=== PATIENT | female | born 1980 | race African-American/Black ===

== ENCOUNTER → 2020-03-26 | Outpatient (CLI) | payer OTHER ==
[~2020-03-26] MED LIST: GASTROGRAFIN SOLUTION 30ML (Q9963) As Ordered ONE; ISOVUE-370 76% 100ML VIAL As Ordered ONE
--- NOTE | 2020-03-26 12:42 | REP ---
REASON FOR EXAM: Abdominal pain. No priors for comparison. CONTRAST: 100 mL Isovue 370. The lung bases are clear. The liver, spleen, pancreas, adrenal glands, and kidneys are within normal limits. The abdominal aorta and para-aortic regions are within normal limits. The patient is status post cholecystectomy. The intra-abdominal and intrapelvic bowel loops and their mesenteries are within normal limits. There is no free fluid or free air in the abdomen. There is a trace amount of free fluid in the pelvis. There is no free pelvic air. There is no evidence of intra-abdominal or intrapelvic mass or adenopathy. Bone window technique throughout the examination shows the osseous structures to be within normal limits. IMPRESSION: Small amount of free fluid in the pelvis, likely physiologic. There is no evidence of acute intra-abdominal or intrapelvic disease. Electronically Signed by Rex Paul DO 03/26/2020 04:56 P
== END ==
LOC: M RAD 07:19
PROVIDERS: ATTEND Family Medicine
DX: R10.84 Generalized abdominal pain (principal)
CPT/HCPCS: 74177; Q9963; Q9967

== ENCOUNTER 2020-04-29 11:52 | Day surgery (SDC) | payer OTHER ==
[2020-04-29] MEDS ORDERED: propofoL 500 MG/50 ML VIAL As Ordered ONE (13:12)
[2020-04-29] MEDS ORDERED: fentaNYL 100 MCG/2 ML INJECTION (J3010) As Ordered ONE (13:13)
[2020-04-29] MEDS ORDERED: LIDOCAINE 2% 100MG/5ML SDV (FOR ANES.) As Ordered ONE (13:29)
[2020-04-29] MEDS ORDERED: ONDANSETRON 4MG/2ML VIAL As Ordered ONE (13:42)
--- NOTE | 2020-05-27 11:28 | ROOR ---
Patient Name: Shakeel Vick Procedure Date: 04/29/2020 9:44 AM Date of : 1980 Age: 40 Room: [facility] Gender: Female Note Status: El Teacher Override Procedure: Total Colonoscopy to Cecum Indications: Lower abdominal pain Providers: Gurdeep Read MD Referring MD: MELLISA PAK MD Requesting Provider: Medicines: Monitored Anesthesia Care Complications: No immediate complications. Procedure: Pre-Anesthesia Assessment: - The heart rate, respiratory rate, oxygen saturations, blood pressure, adequacy of pulmonary ventilation, and response to care were monitored throughout the procedure. The Colonoscope was introduced through the anus and advanced to the cecum, identified by appendiceal orifice and ileocecal valve. The colonoscopy was performed without difficulty. The patient tolerated the procedure well. The quality of the bowel preparation was excellent. Findings: The perianal and digital rectal examinations were normal. No other significant abnormalities were identified in a careful examination of the remainder of the colon. The exam was otherwise without abnormality on direct and retroflexion views. Impression: - The examination was otherwise normal on direct and retroflexion views. - No specimens collected. - The exam was otherwise normal to the cecum. Recommendation: - Patient has a contact number available for emergencies. The signs and symptoms of potential delayed complications were discussed with the patient. Return to normal activities tomorrow. Written discharge instructions were provided to the patient. - High fiber diet. - Discharge patient to home. - Continue present medications. - Repeat colonoscopy at age 52 for screening purposes. - Return to referring physician. - The findings and recommendations were discussed with the patient. Gurdeep Read MD Gurdeep Read MD 04/29/2020 1:42:57 PM Electronically signed by Gurdeep Read MD Number of Addenda: 0 Note Initiated On: 04/29/2020 9:44 AM Estimated Blood Loss: Estimated blood loss: none.
--- NOTE | 2020-05-27 11:28 | ROOR ---
Patient Name: Shakeel Vick Procedure Date: 04/29/2020 9:45 AM Date of : 1980 Age: 40 Room: [facility] Gender: Female Note Status: Finalized Procedure: Upper Endoscopy + Biopsies Indications: Epigastric abdominal pain, Nausea with vomiting Providers: Gurdeep Read MD Referring MD: MELLISA PAK MD Requesting Provider: Medicines: Monitored Anesthesia Care Complications: No immediate complications. Procedure: Pre-Anesthesia Assessment: - The heart rate, respiratory rate, oxygen saturations, blood pressure, adequacy of pulmonary ventilation, and response to care were monitored throughout the procedure. The Endoscope was introduced through the mouth, and advanced to the second part of duodenum. The upper GI endoscopy was accomplished without difficulty. The patient tolerated the procedure well. Findings: The Z-line was variable and was found 40 cm from the incisors. Multiple biopsies were obtained with cold forceps for evaluation to rule out Subramanian's Esophagus randomly at the gastroesophageal junction. No other significant abnormalities were identified in a careful examination of the stomach. Biopsies were taken with a cold forceps in the gastric antrum for Helicobacter pylori testing. The exam of the duodenum was otherwise normal. Impression: - Z-line variable, 40 cm from the incisors. - Multiple biopsies were obtained at the gastroesophageal junction. - Biopsies were taken with a cold forceps for Helicobacter pylori testing. - The examination was otherwise normal. Recommendation: - Patient has a contact number available for emergencies. The signs and symptoms of potential delayed complications were discussed with the patient. Return to normal activities tomorrow. Written discharge instructions were provided to the patient. - High fiber diet. - Discharge patient to home. - Continue present medications. - Await pathology results. - Telephone GI clinic for pathology results in 1 week. - Return to referring physician. - The findings and recommendations were discussed with the patient. Gurdeep Read MD Gurdeep Read MD 04/29/2020 1:28:57 PM Electronically signed by Gurdeep Read MD Number of Addenda: 0 Note Initiated On: 04/29/2020 9:45 AM Estimated Blood Loss: Estimated blood loss: none.
== END 2020-04-29 14:28 | disposition home or self-care (01) ==
LOC: M SDC 11:52
PROVIDERS: ATTEND Internal Medicine Gastroenterology
DX: K22.8 Other specified diseases of esophagus (principal); K29.70 Gastritis, unspecified, without bleeding; R10.30 Lower abdominal pain, unspecified; R10.13 Epigastric pain; R11.2 Nausea with vomiting, unspecified; Z88.8 Allergy status to other drugs, medicaments and biological substances
CPT/HCPCS: 43239; 45378; 88305; J2405; J3010